=== PATIENT | male | born 1940 | race Caucasian/White ===

== ENCOUNTER 2018-01-02 21:51 | Emergency (ER) | payer MEDICARE ==
[~2018-01-02] VITALS: Ht 185.4 cm; Wt 97.5 kg
[~2018-01-02 21:51] MED LIST: ASPI81EC PO; BP; DILT180 PO; EZET10; EZET10 PO; GLUC500 PO; Golytely Packe1 EACH PO; HYDACE5 PO; LISI5 PO; PROM25 PO; Vesicare10 MG PO; XARELTO20 MG PO
== END 2018-01-02 22:33 | disposition home or self-care (01) ==
LOC: ER 21:51
DX: S40.862A Insect bite (nonvenomous) of left upper arm, initial encounter (principal); I10 Essential (primary) hypertension; E78.00 Pure hypercholesterolemia, unspecified; Z91.040 Latex allergy status; Z79.899 Other long term (current) drug therapy; Z79.82 Long term (current) use of aspirin; W57.XXXA Bitten or stung by nonvenomous insect and other nonvenomous arthropods, initial encounter
CPT/HCPCS: 99283

== ENCOUNTER 2018-03-14 17:27 | Emergency (ER) | payer MEDICARE ==
[~2018-03-14] VITALS: Ht 185.4 cm; Wt 99.8 kg
[2018-03-14 18:01] LABS: BASOPHILS ABSOLUTE AUTO 0.06 K/mm3 (0.00-0.23); BASOPHILS PERCENT AUTO 1 % (0-2); EOSINOPHILS ABSOLUTE AUTO 0.55 K/mm3 (0.00-0.68); EOSINOPHILS PERCENT AUTO 7 % (0-6); Hematocrit 45.7 % (37.0-53.0); Hemoglobin 15.5 g/dL (13.5-17.5); IMMATURE GRAN ABSOLUTE AUTO 0.03 K/mm3 (0.00-0.10); IMMATURE GRAN PERCENT AUTO 0 % (0-1); LYMPHOCYTES ABSOLUTE AUTO 1.98 K/mm3 (0.84-5.20); LYMPHOCYTES PERCENT AUTO 27 % (21-46); MONOCYTES ABSOLUTE AUTO 0.93 K/mm3 (0.16-1.47); MONOCYTES PERCENT AUTO 12 % (4-13); Mean Corpuscular HGB Conc 33.9 g/dL (31.5-36.5); Mean Corpuscular Volume 91 fL (80-100); Mean Platelet Volume 9.9 fL (9.1-12.4); NEUTROPHILS ABSOLUTE AUTO 3.92 K/mm3 (1.96-9.15); NEUTROPHILS PERCENT AUTO 53 % (41-73); Platelet Count 275 K/mm3 (150-400); RDW Standard Deviation 46.9 fL (35.1-46.3); White Blood Cell Count 7.47 K/mm3 (4.00-11.30)
[2018-03-14 18:17] LABS: Albumin, Blood 3.7 g/dL (3.4-5.0); Albumin/Globulin Ratio 1.2 (0.8-1.8); Bilirubin, Total 0.5 mg/dL (0.1-1.0); Bun/Creatinine Ratio 15.6 (12.0-20.0); Calcium, Blood 8.4 mg/dL (8.5-10.1); Creatinine, Blood 1.47 mg/dL (0.60-1.20); Potassium, Blood 4.1 mmol/L (3.5-5.5); Total Protein, Blood 6.7 g/dL (6.4-8.2)
[2018-03-14] MEDS ORDERED: Prinivil10 MG PO (19:53)
[2018-03-14] MEDS ORDERED: Bactrim Ds Tab1 EACH PO (20:35)
== END 2018-03-14 20:51 | disposition home or self-care (01) ==
LOC: ER 17:27
PROVIDERS: Emergency Medicine
DX: L03.115 Cellulitis of right lower limb (principal); I10 Essential (primary) hypertension; E78.00 Pure hypercholesterolemia, unspecified; Z91.040 Latex allergy status; Z79.899 Other long term (current) drug therapy; Z79.82 Long term (current) use of aspirin
CPT/HCPCS: 36415; 73630; 80053; 85025; 99283

== ENCOUNTER 2018-04-16 18:18 | Emergency (ER) | payer MEDICARE ==
[~2018-04-16] VITALS: Ht 185.4 cm; Wt 99.8 kg
[~2018-04-16 18:18] MED LIST changes: +Bactrim Ds Tab1 EACH PO; +Prinivil10 MG PO
[2018-04-16 19:32] LABS: BASOPHILS ABSOLUTE AUTO 0.06 K/mm3 (0.00-0.23); BASOPHILS PERCENT AUTO 1 % (0-2); EOSINOPHILS ABSOLUTE AUTO 0.38 K/mm3 (0.00-0.68); EOSINOPHILS PERCENT AUTO 4 % (0-6); Hematocrit 47.6 % (37.0-53.0); Hemoglobin 15.9 g/dL (13.5-17.5); IMMATURE GRAN ABSOLUTE AUTO 0.02 K/mm3 (0.00-0.10); IMMATURE GRAN PERCENT AUTO 0 % (0-1); LYMPHOCYTES ABSOLUTE AUTO 1.93 K/mm3 (0.84-5.20); LYMPHOCYTES PERCENT AUTO 21 % (21-46); MONOCYTES ABSOLUTE AUTO 1.06 K/mm3 (0.16-1.47); MONOCYTES PERCENT AUTO 12 % (4-13); Mean Corpuscular HGB 30.3 pg (26.0-34.0); Mean Corpuscular HGB Conc 33.4 g/dL (31.5-36.5); Mean Corpuscular Volume 91 fL (80-100); Mean Platelet Volume 10.2 fL (9.1-12.4); NEUTROPHILS ABSOLUTE AUTO 5.58 K/mm3 (1.96-9.15); NEUTROPHILS PERCENT AUTO 62 % (41-73); Platelet Count 124 K/mm3 (150-400); RDW Coefficient Variation 13.6 % (11.7-14.2); RDW Standard Deviation 45.3 fL (35.1-46.3); Red Blood Cell Count 5.25 M/mm3 (4.30-5.90); White Blood Cell Count 9.03 K/mm3 (4.00-11.30)
[2018-04-16 19:51] LABS: International Normalized Ratio 1.13; Prothrombin Time Results 11.6 Sec (9.7-11.5)
[2018-04-16 19:57] LABS: Alanine Aminotransfer (ALT/SGP 23 U/L (12-78); Albumin, Blood 3.8 g/dL (3.4-5.0); Albumin/Globulin Ratio 1.1 (0.8-1.8); Alk Phos 53 U/L (50-136); Anion Gap 7 mmol/L (6-16); Aspartate Aminotrans (AST/SGOT 29 U/L (12-37); Bilirubin, Total 0.8 mg/dL (0.1-1.0); Blood Urea Nitrogen 15 mg/dL (8-24); Bun/Creatinine Ratio 12.9 (12.0-20.0); CO2, Blood 27 mmol/L (21-32); Calcium, Blood 9.5 mg/dL (8.5-10.1); Chloride, Blood 104 mmol/L (98-108); Creatinine, Blood 1.16 mg/dL (0.60-1.20); Globulin, Blood 3.4 g/dL (2.2-4.0); Glomerular Filtration Rate >60 (60-); Glucose, Blood 94 mg/dL (70-99); Potassium, Blood 4.9 mmol/L (3.5-5.5); Sodium, Blood 138 mmol/L (136-145); Total Protein, Blood 7.2 g/dL (6.4-8.2)
[2018-04-16] MEDS ORDERED: Cartia Xt180 MG PO (21:40)
[2018-04-16 23:18] LABS: Source, Urine Clean Catch
[2018-04-16 23:23] LABS: Bilirubin, Urine Neg (Neg); Blood, Urine Neg (Neg); Glucose Qualitative, Urine Neg (Neg); Ketones, Urine Neg (Neg); Leukocyte Esterase, Urine Neg (Neg); Nitrite, Urine Neg (Neg); Protein, Urine Neg (Neg); Urobilinogen, Urine NORM (Normal)
[2018-04-16 23:29] LABS: Appearance, Urine Clear (Clear); Color, Urine Yellow (P-Yellow)
[2018-04-16 23:40] LABS: CPK Creatine Kinase 185 U/L (39-308)
[2018-04-17] MEDS ORDERED: ASPI81CH PO (15:55)
[2018-04-17] MEDS ORDERED: XARELTO20 MG PO (15:57)
== END 2018-04-17 01:20 | disposition home or self-care (01) ==
LOC: ER 18:18
PROVIDERS: Emergency Medicine
DX: R52 Pain, unspecified (principal); Z91.040 Latex allergy status; Z79.899 Other long term (current) drug therapy; I10 Essential (primary) hypertension; E78.00 Pure hypercholesterolemia, unspecified
CPT/HCPCS: 36415; 80053; 81003; 82550; 85025; 85610; 85730; 93005; 93010; 96361; 96374; 99284-25; J1885; J7030

== ENCOUNTER 2018-04-17 08:22 | Inpatient (IN) | payer MEDICARE ==
[~2018-04-17] VITALS: Ht 185.4 cm; Wt 106.2 kg
[~2018-04-17 08:22] MED LIST changes: +Cartia Xt180 MG PO
[2018-04-17 09:24] LABS: Alanine Aminotransfer (ALT/SGP 18 U/L (12-78); Albumin, Blood 3.4 g/dL (3.4-5.0); Albumin/Globulin Ratio 1.2 (0.8-1.8); Alk Phos 53 U/L (50-136); Anion Gap 9 mmol/L (6-16); Aspartate Aminotrans (AST/SGOT 22 U/L (12-37); BASOPHILS ABSOLUTE AUTO 0.09 K/mm3 (0.00-0.23); BASOPHILS PERCENT AUTO 1 % (0-2); Bilirubin, Total 1.1 mg/dL (0.1-1.0); Blood Urea Nitrogen 15 mg/dL (8-24); Bun/Creatinine Ratio 12.4 (12.0-20.0); CO2, Blood 23 mmol/L (21-32); Calcium, Blood 8.2 mg/dL (8.5-10.1); Chloride, Blood 109 mmol/L (98-108); Creatinine, Blood 1.21 mg/dL (0.60-1.20); EOSINOPHILS ABSOLUTE AUTO 0.35 K/mm3 (0.00-0.68); EOSINOPHILS PERCENT AUTO 4 % (0-6); Globulin, Blood 2.9 g/dL (2.2-4.0); Glomerular Filtration Rate >60 (60-); Glucose, Blood 131 mg/dL (70-99); Hematocrit 44.9 % (37.0-53.0); IMMATURE GRAN ABSOLUTE AUTO 0.07 K/mm3 (0.00-0.10); IMMATURE GRAN PERCENT AUTO 1 % (0-1); LYMPHOCYTES PERCENT AUTO 26 % (21-46); MONOCYTES ABSOLUTE AUTO 1.03 K/mm3 (0.16-1.47); MONOCYTES PERCENT AUTO 11 % (4-13); Mean Corpuscular HGB 30.5 pg (26.0-34.0); Mean Corpuscular HGB Conc 33.4 g/dL (31.5-36.5); Mean Corpuscular Volume 91 fL (80-100); Mean Platelet Volume 9.9 fL (9.1-12.4); NEUTROPHILS ABSOLUTE AUTO 5.36 K/mm3 (1.96-9.15); NEUTROPHILS PERCENT AUTO 58 % (41-73); Platelet Count 115 K/mm3 (150-400); Potassium, Blood 4.1 mmol/L (3.5-5.5); RDW Coefficient Variation 13.7 % (11.7-14.2); RDW Standard Deviation 46.4 fL (35.1-46.3); Red Blood Cell Count 4.92 M/mm3 (4.30-5.90); Sodium, Blood 141 mmol/L (136-145); Total Protein, Blood 6.3 g/dL (6.4-8.2); Troponin I <0.015 ng/mL (0.000-0.040)
[2018-04-17 14:06] LABS: C-REACTIVE PROTEIN, EXT RANGE 4.19 mg/dL (0.000-0.300)
[2018-04-17 14:16] LABS: Thyroid Stimulating Hormone 0.971 uIU/mL (0.360-4.800)
[2018-04-17 14:24] LABS: Troponin I 1.04 ng/mL (0.000-0.040)
[2018-04-17] MEDS ORDERED: ASPI81CH PO (15:55)
[2018-04-17] MEDS ORDERED: XARELTO20 MG PO (15:57)
[2018-04-18 04:38] LABS: BASOPHILS ABSOLUTE AUTO 0.06 K/mm3 (0.00-0.23); BASOPHILS PERCENT AUTO 1 % (0-2); EOSINOPHILS ABSOLUTE AUTO 0.35 K/mm3 (0.00-0.68); EOSINOPHILS PERCENT AUTO 4 % (0-6); Hematocrit 40.7 % (37.0-53.0); Hemoglobin 13.5 g/dL (13.5-17.5); IMMATURE GRAN ABSOLUTE AUTO 0.04 K/mm3 (0.00-0.10); IMMATURE GRAN PERCENT AUTO 0 % (0-1); LYMPHOCYTES ABSOLUTE AUTO 2.29 K/mm3 (0.84-5.20); LYMPHOCYTES PERCENT AUTO 23 % (21-46); MONOCYTES ABSOLUTE AUTO 1.04 K/mm3 (0.16-1.47); MONOCYTES PERCENT AUTO 10 % (4-13); Mean Corpuscular HGB 30.2 pg (26.0-34.0); Mean Corpuscular HGB Conc 33.2 g/dL (31.5-36.5); Mean Corpuscular Volume 91 fL (80-100); Mean Platelet Volume 10.6 fL (9.1-12.4); NEUTROPHILS ABSOLUTE AUTO 6.35 K/mm3 (1.96-9.15); NEUTROPHILS PERCENT AUTO 63 % (41-73); Platelet Count 110 K/mm3 (150-400); RDW Standard Deviation 46.4 fL (35.1-46.3); Red Blood Cell Count 4.47 M/mm3 (4.30-5.90); White Blood Cell Count 10.13 K/mm3 (4.00-11.30)
[2018-04-18 05:00] LABS: Alanine Aminotransfer (ALT/SGP 19 U/L (12-78); Albumin, Blood 3.1 g/dL (3.4-5.0); Albumin/Globulin Ratio 1.1 (0.8-1.8); Alk Phos 49 U/L (50-136); Anion Gap 8 mmol/L (6-16); Aspartate Aminotrans (AST/SGOT 22 U/L (12-37); Bilirubin, Total 0.8 mg/dL (0.1-1.0); Blood Urea Nitrogen 15 mg/dL (8-24); Bun/Creatinine Ratio 12.2 (12.0-20.0); CO2, Blood 26 mmol/L (21-32); Calcium, Blood 7.8 mg/dL (8.5-10.1); Chloride, Blood 108 mmol/L (98-108); Creatinine, Blood 1.23 mg/dL (0.60-1.20); Globulin, Blood 2.7 g/dL (2.2-4.0); Glomerular Filtration Rate >60 (60-); Glucose, Blood 120 mg/dL (70-99); Potassium, Blood 4.4 mmol/L (3.5-5.5); Sodium, Blood 142 mmol/L (136-145); Total Protein, Blood 5.8 g/dL (6.4-8.2)
[2018-04-19 04:02] LABS: BASOPHILS PERCENT AUTO 1 % (0-2); EOSINOPHILS ABSOLUTE AUTO 0.55 K/mm3 (0.00-0.68); EOSINOPHILS PERCENT AUTO 5 % (0-6); Hematocrit 41.9 % (37.0-53.0); IMMATURE GRAN ABSOLUTE AUTO 0.04 K/mm3 (0.00-0.10); IMMATURE GRAN PERCENT AUTO 0 % (0-1); LYMPHOCYTES ABSOLUTE AUTO 2.34 K/mm3 (0.84-5.20); LYMPHOCYTES PERCENT AUTO 22 % (21-46); MONOCYTES ABSOLUTE AUTO 1.18 K/mm3 (0.16-1.47); MONOCYTES PERCENT AUTO 11 % (4-13); Mean Corpuscular HGB 30.7 pg (26.0-34.0); Mean Corpuscular HGB Conc 33.4 g/dL (31.5-36.5); Mean Corpuscular Volume 92 fL (80-100); Mean Platelet Volume 10.6 fL (9.1-12.4); NEUTROPHILS ABSOLUTE AUTO 6.47 K/mm3 (1.96-9.15); NEUTROPHILS PERCENT AUTO 61 % (41-73); Platelet Count 121 K/mm3 (150-400); RDW Coefficient Variation 13.9 % (11.7-14.2); RDW Standard Deviation 47.2 fL (35.1-46.3); Red Blood Cell Count 4.56 M/mm3 (4.30-5.90); White Blood Cell Count 10.68 K/mm3 (4.00-11.30)
[2018-04-19 04:24] LABS: Anion Gap 8 mmol/L (6-16); Blood Urea Nitrogen 13 mg/dL (8-24); Bun/Creatinine Ratio 10.8 (12.0-20.0); CO2, Blood 26 mmol/L (21-32); Calcium, Blood 8.4 mg/dL (8.5-10.1); Chloride, Blood 105 mmol/L (98-108); Glomerular Filtration Rate >60 (60-); Glucose, Blood 105 mg/dL (70-99); Potassium, Blood 4.1 mmol/L (3.5-5.5); Sodium, Blood 139 mmol/L (136-145)
[2018-04-20 05:31] LABS: BASOPHILS ABSOLUTE AUTO 0.07 K/mm3 (0.00-0.23); BASOPHILS PERCENT AUTO 1 % (0-2); EOSINOPHILS PERCENT AUTO 7 % (0-6); Hematocrit 42.1 % (37.0-53.0); Hemoglobin 14.1 g/dL (13.5-17.5); IMMATURE GRAN ABSOLUTE AUTO 0.03 K/mm3 (0.00-0.10); IMMATURE GRAN PERCENT AUTO 0 % (0-1); LYMPHOCYTES ABSOLUTE AUTO 1.85 K/mm3 (0.84-5.20); LYMPHOCYTES PERCENT AUTO 25 % (21-46); MONOCYTES ABSOLUTE AUTO 0.88 K/mm3 (0.16-1.47); MONOCYTES PERCENT AUTO 12 % (4-13); Mean Corpuscular HGB 29.7 pg (26.0-34.0); Mean Corpuscular HGB Conc 33.5 g/dL (31.5-36.5); Mean Platelet Volume 10.6 fL (9.1-12.4); NEUTROPHILS PERCENT AUTO 56 % (41-73); Platelet Count 129 K/mm3 (150-400); RDW Coefficient Variation 13.5 % (11.7-14.2); Red Blood Cell Count 4.74 M/mm3 (4.30-5.90); White Blood Cell Count 7.53 K/mm3 (4.00-11.30)
[2018-04-20 05:52] LABS: Alanine Aminotransfer (ALT/SGP 19 U/L (12-78); Albumin, Blood 3.1 g/dL (3.4-5.0); Alk Phos 53 U/L (50-136); Anion Gap 10 mmol/L (6-16); Aspartate Aminotrans (AST/SGOT 24 U/L (12-37); Bilirubin, Total 0.8 mg/dL (0.1-1.0); Blood Urea Nitrogen 12 mg/dL (8-24); Bun/Creatinine Ratio 11.2 (12.0-20.0); CO2, Blood 25 mmol/L (21-32); Calcium, Blood 8.4 mg/dL (8.5-10.1); Chloride, Blood 106 mmol/L (98-108); Creatinine, Blood 1.07 mg/dL (0.60-1.20); Globulin, Blood 3.2 g/dL (2.2-4.0); Glomerular Filtration Rate >60 (60-); Glucose, Blood 105 mg/dL (70-99); Mean Corpuscular Volume 89 fL (80-100); Potassium, Blood 3.9 mmol/L (3.5-5.5); Sodium, Blood 141 mmol/L (136-145); Total Protein, Blood 6.3 g/dL (6.4-8.2)
[2018-04-21] MEDS ORDERED: XARELTO15 MG PO (09:56)
[2018-04-21] MEDS ORDERED: XARELTO20 MG PO (09:59)
[2018-04-21] MEDS ORDERED: TAMS.4ER PO (10:04)
== END 2018-04-21 14:05 | disposition home or self-care (01) | DRG 176 ==
LOC: ER 08:22 → MEDS 08:23 → PCU 15:13 → MEDS 04-18 16:43 → PCU 04-18 16:44 → MEDS 04-19 14:31 → ENPENDDIS 04-21 09:00 → MEDS 04-21 14:05
PROVIDERS: Emergency Medicine; Internal Medicine
DX: I26.92 Saddle embolus of pulmonary artery without acute cor pulmonale (principal); I82.412 Acute embolism and thrombosis of left femoral vein; I82.431 Acute embolism and thrombosis of right popliteal vein; D69.6 Thrombocytopenia, unspecified; R55 Syncope and collapse; I10 Essential (primary) hypertension; R79.89 Other specified abnormal findings of blood chemistry; E78.5 Hyperlipidemia, unspecified; I44.0 Atrioventricular block, first degree; I45.10 Unspecified right bundle-branch block; R33.9 Retention of urine, unspecified; Z86.718 Personal history of other venous thrombosis and embolism; Z91.040 Latex allergy status; Z79.899 Other long term (current) drug therapy
CPT/HCPCS: 36415; 51702; 71046; 71260; 74019; 80048; 80053; 83605; 83880; 84443; 84484; 85025; 85060; 85379; 85651; 85730; 86140; 93005; 93010; 93306; 93970; 94762; 96361; 96365; 96366; 96376; 99285-25; G0378; J1644; J7030; Q9967

== ENCOUNTER 2019-01-30 11:31 | Emergency (ER) | payer MEDICARE ==
[~2019-01-30] VITALS: Ht 185.4 cm; Wt 96.6 kg
[~2019-01-30 11:31] MED LIST changes: +ASPI81CH PO; +TAMS.4ER PO; +XARELTO15 MG PO
[2019-01-30] MEDS ORDERED: EZET10 PO (12:03)
[2019-01-30] MEDS ORDERED: DONE5 PO (12:04)
== END 2019-01-30 13:41 | disposition home or self-care (01) ==
LOC: ER 11:31
DX: I82.412 Acute embolism and thrombosis of left femoral vein (principal); I82.4Y2 Acute embolism and thrombosis of unspecified deep veins of left proximal lower extremity; Z91.040 Latex allergy status; Z79.899 Other long term (current) drug therapy; Z79.82 Long term (current) use of aspirin; I10 Essential (primary) hypertension
CPT/HCPCS: 93971; 99283-25

== ENCOUNTER → 2019-05-20 | Outpatient (CLI) | payer MEDICARE ==
[~2019-05-20] MED LIST changes: +DONE5 PO
[2019-05-24 15:14] LABS: M-SPIKE, % Not Observed % (Not Observed)
== END ==
LOC: LAB SHORT 10:44 → LAB 10:44 → LAB FUT 05-17 13:00
PROVIDERS: Internal Medicine
DX: Z00.01 Encounter for general adult medical examination with abnormal findings (principal)
CPT/HCPCS: 81050; 84166; 86335